=== PATIENT | female | born 1990 | race Caucasian/White ===

== ENCOUNTER 2017-04-05 12:54 | Emergency (ER) | payer OTHER ==
[~2017-04-05] VITALS: Ht 167.6 cm; Wt 110.9 kg
[2017-04-05] MEDS ORDERED: SODIUM CHLORIDE 0.9% 1,000 ML IV ONE (13:40)
[2017-04-05] MEDS ORDERED: HYDROmorphone 1 MG/ML, 1ML ONE (13:56)
[2017-04-05] MEDS ORDERED: ONDANSETRON 2MG/ML, 2ML ONE (13:56)
[2017-04-05] MEDS ORDERED: SODIUM CHLORIDE FLUSH 10ML SYR IVF ONE (14:00)
[2017-04-05] MEDS ORDERED: ONDANSETRON 2MG/ML, 2ML IVPush ONE (14:00)
[2017-04-05] MEDS ORDERED: SODIUM CHLORIDE 0.9% 1,000ML IVBOLUS ONE (14:00)
[2017-04-05] MEDS ORDERED: HYDROmorphone 1 MG/ML, 1ML IVPush PRN (14:00)
[2017-04-05 14:41] LABS: BLOOD UREA NITROGEN 16 mg/dL (7-18)
[2017-04-05 14:46] LABS: ASPARTATE AMINO TRANSFERASE 15 U/L (15-37)
[2017-04-05 16:48] VITALS: BP 109/73
== END 2017-04-05 16:50 | disposition home or self-care (01) ==
LOC: ED 16:48
DX: A08.4 Viral intestinal infection, unspecified (principal); E86.0 Dehydration
CPT/HCPCS: 36415; 80053; 83690; 85025; 93005; 96361; 96374; 99285; J2405; J7030

== ENCOUNTER → 2017-10-07 | Outpatient (CLI) | payer OTHER ==
[~2017-10-07] MED LIST: GADOBUTROL 10 MMOL/10 ML PFS ONE
== END | disposition home or self-care (01) ==
LOC: CFH 09:26
PROVIDERS: ATTEND Registered Nurse
DX: G43.109 Migraine with aura, not intractable, without status migrainosus (principal)
CPT/HCPCS: 70553; A9585